=== PATIENT | female | born 1975 | race Hispanic/Latino ===

== ENCOUNTER 2020-02-03 08:03 | Emergency (ER) | payer SELFPAY ==
--- NOTE | 2020-02-03 08:07 | ED.GENADULT ---
HPI - General Adult General Chief complaint: Dental/Oral Stated complaint: tooth abscess Time Seen by Provider: 02/03/20 08:22 Source: patient Mode of arrival: ambulatory Limitations: no limitations History of Present Illness HPI narrative: 44-year-old female patient presents to the [facility] with complaints of swelling to the left side of the face and dental pain for the past 2 to 3 days. Patient denies any fevers. Patient states that she knows she has bad teeth and is supposed to be getting all of her teeth taken out in July 2020. Patient states she does not have a current dentist. Patient states that she started feeling pain to the left upper side on Monday and noticed that the swelling started yesterday morning when she woke up. Patient states she has been taking ibuprofen for the pain and using ice packs to the outside of the cheek. Related Data Allergies Allergy/AdvReac Type Severity Reaction Status Date / Time No Known Allergies Allergy Verified 02/03/20 08:42 Review of Systems Review of Systems: Narrative: CONSTITUTIONAL: Denies fever, chills, or sweats. EYES: Denies visual changes, redness, or discharge. ENT: Denies rhinorrhea, congestion, sore throat, or otalgia. Positive swelling to left cheek and left upper dental pain x2 to 3 days CARDIOVASCULAR: Denies chest pain, palpitations, or edema. RESPIRATORY: Denies cough or dyspnea. GASTROINTESTINAL: Denies abdominal pain, nausea, vomiting, or diarrhea. GENITOURINARY: Denies dysuria or hematuria. SKIN: Denies rash or itching. MUSCULOSKELETAL: Denies back pain, joint pain, or myalgia. NEUROLOGIC: Denies headache, numbness, or weakness. PSYCHIATRIC: Denies anxiety or depression. PMFSH Comments At the time of my signature I agree with nursing past medical history, surgical, social, and family history. There is no relevant family history pertinent to the presenting complaint. Exam Narrative: Exam Narrative: GENERAL: Well-appearing, well-nourished, and in no acute distress. HEAD: Normocephalic, atraumatic. EYES: PERRLA and EOMI. ENT: Nares clear, no rhinorrhea or epistaxis. Mucous membranes moist. Patient has swelling noted to the left cheek that extends up to right under the left eye. On exam of the oral cavity patient does have an obvious abscess of the gum on the left upper area right above the canines. NECK: Supple. No lymphadenopathy CHEST: Clear to auscultation. No respiratory distress. HEART: Regular rate and rhythm. No murmur heard. Normal peripheral pulses. ABDOMEN: Soft, nontender, nondistended, normal active bowel sounds. EXTREMITIES: Normal range of motion. No edema. SKIN: Warm, dry, no rash. NEURO: No focal deficits. Alert and oriented x3. Course Vital Signs Vital signs: Vital Signs Temperature 36.9 C 02/03/20 08:19 Pulse Rate 84 02/03/20 08:19 Respiratory Rate 16 02/03/20 08:19 Blood Pressure 144/100 H 02/03/20 08:19 Pulse Oximetry 99 02/03/20 08:19 Temperature 36.9 C 02/03/20 08:19 Pulse Rate 84 02/03/20 08:19 Respiratory Rate 16 02/03/20 08:19 Blood Pressure 144/100 H 02/03/20 08:19 Pulse Oximetry 99 02/03/20 08:19 Vital signs reviewed. The patient has been informed that they may have pre-hypertension or Hypertension based on a BP reading in the department. I recommend that the patient call the primary care provider listed on their discharge instructions or a physician of their choice this week to arrange follow up for further evaluation of possible pre-hypertension or Hypertension Procedures Abscess I/D oral: Date of Incision: 02/03/20 Time of Incision: 08:35 Side (if applicable): left Sedation/analgesia: none Local Anesthetic: lidocaine 1% and other anesthetic (LET) Amount of anesthesia used (mL): 4 Technique: incised with #11 blade Irrigation: Yes Packing used?: none I&D Results: Pus Abcess I&D Additional Comments: The procedure w
[2020-02-03 08:19] VITALS: BP 144/100; PULSE 84; RESP 16; TEMP 36.9; O2SAT 99
== END 2020-02-03 08:53 | disposition home or self-care (01) ==
PROVIDERS: Emergency Provider Nurse Practitioner Family
DX: K04.7 Periapical abscess without sinus (principal)
CPT/HCPCS: 41800; 99203; G0463